=== PATIENT | female | born 1995 | race African-American/Black ===

== ENCOUNTER → 2016-09-16 | Outpatient (CLI) | payer MEDICAID | LOC: FIMAGING 08:58 | PROVIDERS: ATTEND Family Medicine | DX: N63 Unspecified lump in breast (principal) ==

== ENCOUNTER 2017-02-11 20:47 | Emergency (ER) | payer OTHER, MEDICAID ==
[2017-02-11 20:57] VITALS: BP 149/85; PULSE 71; RESP 16; O2SAT 98
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
== END 2017-02-11 21:21 | disposition home or self-care (01) ==
LOC: CED 20:47
DX: S13.9XXA Sprain of joints and ligaments of unspecified parts of neck, initial encounter (principal); V48.5XXA Car driver injured in noncollision transport accident in traffic accident, initial encounter; Y92.410 Unspecified street and highway as the place of occurrence of the external cause; Y99.8 Other external cause status; Y93.89 Activity, other specified